=== PATIENT | female | born 1995 | race Caucasian/White ===

== ENCOUNTER → 2018-12-10 | Outpatient (REF) | payer OTHER ==
[2018-12-10 14:41] LABS: BASO # 0.1 10^3/uL (0.0-0.2); BASO % 0.8 % (0.0-1.0); EOS # 0.1 10^3/uL (0.0-0.50); EOS % 2.2 % (0.0-3.0); HEMATOCRIT 39.8 % (36.0-47.0); LYMPH # 2.4 10^3/uL (1.5-6.5); LYMPH % 37.8 % (24.0-44.0); MEAN CORPUSCULAR HEMOGLOBIN 27.9 pg (27.0-33.0); MEAN CORPUSCULAR HGB CONC 32.7 g/dl (32.0-36.5); MEAN CORPUSCULAR VOLUME 85.4 fl (80.0-96.0); MONO # 0.6 10^3/uL (0.0-0.8); MONO % 9.2 % (0.0-5.0); NEUTROPHILS # 3.2 10^3/uL (1.8-7.7); NEUTROPHILS % 49.7 % (36.0-66.0); PLATELET COUNT, AUTOMATED 271 10^3/uL (150-450); RED BLOOD COUNT 4.66 10^6/uL (4.00-5.40); WHITE BLOOD COUNT 6.4 10^3/uL (4.0-10.0)
[2018-12-10 14:52] LABS: ALT/SGPT 17 U/L (12-78); BILIRUBIN,TOTAL 0.8 MG/DL (0.2-1.0); BLOOD UREA NITROGEN 9 MG/DL (7-18); CALCIUM LEVEL 8.8 MG/DL (8.5-10.1); CARBON DIOXIDE LEVEL 27 MEQ/L (21-32); CHLORIDE LEVEL 105 MEQ/L (98-107); CHOLESTEROL LEVEL 188 MG/DL (<200); CHOLESTEROL RISK RATIO 3.686 (<5); FREE T4 0.94 NG/DL (0.76-1.46); GLOMERULAR FILTRATION RATE > 60.0 (>60); GLUCOSE, FASTING 85 MG/DL (70-100); HDL CHOLESTEROL 51 MG/DL (>40); LDL CHOLESTEROL 109 MG/DL (<100); NON-HDL-C 137 MG/DL; POTASSIUM SERUM 3.8 MEQ/L (3.5-5.1); SODIUM LEVEL 139 MEQ/L (136-145); TOTAL PROTEIN 7.1 GM/DL (6.4-8.2); TRIGLYCERIDES LEVEL 139 MG/DL (<150)
[2018-12-10 15:04] LABS: HEMOGLOBIN A1c 5.6 %
== END ==
LOC: M LABSMT 13:24
PROVIDERS: ATTEND Physician Assistant
DX: Z13.29 Encounter for screening for other suspected endocrine disorder (principal); K21.0 Gastro-esophageal reflux disease with esophagitis

== ENCOUNTER → 2019-04-01 | Outpatient (REF) | payer OTHER ==
[2019-04-01 18:23] LABS: HEMATOCRIT 37.4 % (36.0-47.0); HEMOGLOBIN 12.6 g/dl (12.0-15.5); MEAN CORPUSCULAR HEMOGLOBIN 28.8 pg (27.0-33.0); MEAN CORPUSCULAR HGB CONC 33.7 g/dl (32.0-36.5); MEAN CORPUSCULAR VOLUME 85.6 fl (80.0-96.0); PLATELET COUNT, AUTOMATED 291 10^3/uL (150-450); RED BLOOD COUNT 4.37 10^6/uL (4.00-5.40); WHITE BLOOD COUNT 8.1 10^3/uL (4.0-10.0)
[2019-04-02 07:49] LABS: HCG, SERUM QUANTITATIVE 60008 MIU/ML
[2019-04-02 11:03] LABS: RUBELLA IgG QUALITATIVE IMMUNE (IMMUNE)
[2019-04-02 11:32] LABS: HIV 1&2 SCREEN CENTAUR NEGATIVE (NEGATIVE)
== END ==
LOC: M LAB REF 16:52
PROVIDERS: ATTEND Obstetrics & Gynecology
DX: O36.80X0 Pregnancy with inconclusive fetal viability, not applicable or unspecified (principal); Z32.01 Encounter for pregnancy test, result positive

== ENCOUNTER → 2019-06-25 | Outpatient (CLI) | payer OTHER ==
[~2019-06-25] MED LIST: PRENTAB9 PO
--- NOTE | 2019-06-25 08:29 | REP ---
Clinical: Anatomical evaluation. Comparison: None . Findings: Examination demonstrates a single live intrauterine in cephalic presentation. motion is identified by technologist. Placenta is noted posterior and grade zero without evidence for placenta previa or abruption. Amniotic fluid volume is normal. Cervix measures 4.7 cm in length and appears closed. No evidence for nuchal cord. Gestational age by LMP 19 weeks 1 day with LATESHA 11/18/2019 . Gestational age by current measurements 20 weeks 0 days with LATESHA 11/12/2019 . FHR equals 150 beats per minute. BPD 4.6 cm 19 weeks 5 days HC 17.1 cm 19 weeks 5 days AC 15.5 cm 20 weeks 5 days FL 3.2 cm 19 weeks 6 days HL 3.1 cm 20 weeks 0 days HC/AC ratio 1.10 Estimated weight 343 grams ( 93rd percentile). Anatomical assessment demonstrates normal structures including cranium, choroid plexus, cavum, cerebellum/posterior fossa, facial features, lungs, diaphragm, stomach, cord insertion/three-vessel cord, kidneys/bladder, spine, and extremities. Impression: Single live intrauterine in cephalic presentation demonstrating appropriate interval growth. Limited evaluation of the heart/ventricular outflow tracts noted. Remainder of the anatomical assessment is complete and normal. Electronically Signed by Ramon Lomeli MD 06/25/2019 08:21 A
== END ==
LOC: M RAD 07:17
PROVIDERS: ATTEND Advanced Practice Midwife
DX: Z34.02 Encounter for supervision of normal first pregnancy, second trimester (principal); Z36.89 Encounter for other specified antenatal screening; Z3A.19 19 weeks gestation of pregnancy

== ENCOUNTER → 2019-07-22 | Outpatient (CLI) | payer OTHER ==
--- NOTE | 2019-07-22 15:08 | REP ---
OB ULTRASOUND: Real-time sonographic evaluation of the gravid uterus is performed. There is a single living intrauterine gestation, estimated gestational age 23 weeks 0 days, EDC 11/18/2019. Today's measurements show appropriate growth. BPD 57 mm = 23 weeks 3 days, 62nd percentile HC 221 mm = 24 weeks 1 day, 74th percentile AC 200 mm = 24 weeks 4 days, 84th percentile FL 45 mm = 24 weeks 5 days, 88th percentile HC/AC ratio 1.11, within normal range. Estimated weight 712 grams, greater than 97th percentile. Cervix is closed and measures 3.9 cm in length. heart rate 136 beats per minute. SEEN/GROSSLY UNREMARKABLE Lateral ventricles yes Posterior fossa yes Upper lip no Four-chamber heart yes LVOT yes RVOT yes Stomach yes Cord insertion yes Three vessel cord yes Kidneys yes Bladder yes Spine no position: Transverse with head toward the maternal left side. Placenta: Posterior, fundal and grade 0 with no previa or abruption. Amniotic fluid: Within normal limits. Electronically Signed by Marcin Galeana MD 07/23/2019 04:18 P
== END ==
LOC: M RAD 10:31
PROVIDERS: ATTEND Advanced Practice Midwife
DX: Z34.82 Encounter for supervision of other normal pregnancy, second trimester (principal); Z3A.23 23 weeks gestation of pregnancy

== ENCOUNTER → 2019-08-18 | Outpatient (CLI) | payer OTHER ==
[2019-08-18 13:32] LABS: HEMATOCRIT 35.6 % (36.0-47.0); HEMOGLOBIN 11.8 g/dl (12.0-15.5); MEAN CORPUSCULAR HEMOGLOBIN 28.8 pg (27.0-33.0); MEAN CORPUSCULAR HGB CONC 33.1 g/dl (32.0-36.5); MEAN CORPUSCULAR VOLUME 86.8 fl (80.0-96.0); PLATELET COUNT, AUTOMATED 273 10^3/uL (150-450); WHITE BLOOD COUNT 9.3 10^3/uL (4.0-10.0)
== END ==
LOC: M LAB 11:49
PROVIDERS: ATTEND Advanced Practice Midwife
DX: Z34.02 Encounter for supervision of normal first pregnancy, second trimester (principal); Z3A.00 Weeks of gestation of pregnancy not specified

== ENCOUNTER → 2019-10-06 | Outpatient (CLI) | payer OTHER ==
--- NOTE | 2019-10-06 11:27 | REP ---
Obstetric sonography: History: Supervision of , 35 weeks. Size greater than dates. Findings: Scanning through the gravid uterus demonstrates a viable single intrauterine gestation in a cephalic lie. motion is observed and heart rate is recorded at 135 beats per minute. A posterior grade 1 placenta is seen without evidence of previa. Amniotic fluid is subjectively normal. Closed cervical length is measured transabdominally at 3.4 cm. No extrauterine abnormality is observed. There has been appropriate interval growth. Umbilical cord is seen draping across the neck. No anomaly is seen. The following anatomic structures are again identified and felt to be unremarkable: cranium, face and profile, four-chamber heart, diaphragm, left-sided stomach, abdominal wall cord insertion, three-vessel cord, kidneys and bladder, spine. Biometry chart: BPD 9.1 cm = 37 weeks 0 days Head circumference 31.6 cm = 35 weeks 4 days Abdominal circumference 33.2 cm = 37 weeks 1 day Femur length 6.4 cm = 33 weeks 2 days Humeral length 5.7 cm = 32 weeks 6 days HC/AC ratio normal 0.95. Cephalic index normal 0.83. Estimated weight 2816 grams, 6 pounds 3 ounces, 87 percentile for 33 weeks 6 days. THERON normal 16.2%. S/D ratio in the umbilical cord artery by Doppler normal 2.20. Impression: Viable single intrauterine gestation at 35 weeks 1 day by today's composite sonographic criteria. Expected gestational age estimate based on prior sonography is 34 weeks 5 days. LATESHA based on prior sonography is November 12, 2019. There has been appropriate interval growth. Electronically Signed by Roque Lloyd MD 10/06/2019 11:40 A
== END ==
LOC: M RAD 08:57
PROVIDERS: ATTEND Advanced Practice Midwife
DX: O26.849 Uterine size-date discrepancy, unspecified trimester (principal); Z3A.35 35 weeks gestation of pregnancy

== ENCOUNTER → 2019-10-20 | Outpatient (REF) | payer OTHER | LOC: M SFHCWAGY 17:17 | PROVIDERS: ATTEND Obstetrics & Gynecology | DX: Z36.85 Encounter for antenatal screening for Streptococcus B (principal); O99.213 Obesity complicating pregnancy, third trimester ==

== ENCOUNTER → 2019-11-04 | Outpatient (CLI) | payer OTHER ==
--- NOTE | 2019-11-04 19:07 | REP ---
A obstetric sonography: History: Size greater than dates, estimated weight study. Comparison exam October 06, 2019. Findings: Scanning through the gravid uterus demonstrates a viable single intrauterine gestation in a cephalic lie. Posterior placenta is seen without evidence of previa. Closed cervical length could not be measured due to low head position. There has been appropriate interval growth. Umbilical cord is seen draping across the back of the neck. The following anatomic structures are again identified and felt to be unremarkable today: cranium, choroid plexus, cavum, lungs, diaphragm, left-sided stomach, abdominal wall cord insertion, three-vessel cord, kidneys and bladder. Biometry chart: BPD 9.8 cm 40 weeks 1 day head circumference 34.4 cm 39 weeks 5 days abdominal circumference 38.4 cm, off scale femur length 7.0 cm 35 weeks 6 days humeral length 6.6 cm 38 weeks 3 days HC/AC ratio 0.89 (0.90 1.09), cephalic index normal 0.81, estimated weight 4141 grams/9 pounds 2 ounces/greater 97 percentile for 38 weeks 0 days. Amniotic fluid index 24.5 cm (7.3-23.9 cm) SD ratio in the umbilical cord artery by Doppler normal 2.07. Impression: Viable single intrauterine gestation at 38 weeks 3 days by today's composite criteria. Expected gestational age estimate based on prior sonography is 38 weeks 6 days. LATESHA by prior sonography November 12, 2019. Greater 97th percentile for weight. Electronically Signed by Roque Lloyd MD 11/05/2019 08:10 A
== END ==
LOC: M RAD 14:25
PROVIDERS: ATTEND Internal Medicine Medical Oncology
DX: O26.849 Uterine size-date discrepancy, unspecified trimester (principal); Z3A.38 38 weeks gestation of pregnancy

== ENCOUNTER 2019-11-11 08:41 | Inpatient (IN) | payer OTHER ==
[~2019-11-11] VITALS: Ht 160 cm; Wt 115.8 kg
[2019-11-11] VITALS (26 sets, daily range): BP systolic 110–159; BP diastolic 56–95
[2019-11-11] MEDS ORDERED: PRENTAB9 PO (09:34)
[2019-11-11] MEDS: miSOPROStol 50 MCG 1/2 TAB (S0191) SL SCH ×2 (10:27→14:57)
[2019-11-11 10:58] LABS: HEMATOCRIT 35.8 % (36.0-47.0); HEMOGLOBIN 11.3 g/dl (12.0-15.5); MEAN CORPUSCULAR HGB CONC 31.6 g/dl (32.0-36.5); MEAN CORPUSCULAR VOLUME 85.6 fl (80.0-96.0); PLATELET COUNT, AUTOMATED 245 10^3/uL (150-450); RED BLOOD COUNT 4.18 10^6/uL (4.00-5.40); WHITE BLOOD COUNT 8.3 10^3/uL (4.0-10.0)
--- NOTE | 2019-11-11 11:31 | HPE ---
DATE OF ADMISSION: 11/11/2019 She is a 23-year-old, (G) 1, para (P) 0 female, at 39-0/7 weeks gestation by 8 week ultrasound, estimated date of confinement (EDC) of 11/18/2019 presents for labor induction. The patient's course is significant for large for gestational age with an ultrasound of 4121 grams, which is greater than 97 percentile 1 week prior to admission. The patient has occasional contractions. She denies vaginal bleeding. There is good movement. COURSE: care has been through [facility] since early . The patient has large for gestational age as described above. No other complications. MEDICAL HISTORY: Depression/anxiety. SURGICAL HISTORY: [place] teeth removal. ALLERGIES: NONE. SOCIAL HISTORY: The patient smoked cigarettes prior to but denies use during . She admits to occasional marijuana use. Father of the baby is involved. FAMILY HISTORY: The patient's mother admits to having a large baby. Her first baby was 12 pounds, second baby was almost 10 pounds. PHYSICAL EXAM: Blood pressure 134/74. Pulse 84. She is in no apparent distress. Head and neck exam normal. Lungs: Clear. Heart: Regular rate and rhythm. Abdomen: Nontender, gravid. heart tones category 1. Contractions irregular. Sterile vaginal exam: 3 cm, 70% and -2, posterior, soft, vertex. Extremities: Nontender. LABS: Blood type AB positive, rubella immune. RPR nonreactive. Hepatitis B and C negative. Diabetes screen negative. GBS negative. ASSESSMENT: 23-year-old, 1, at 39-0/7 weeks gestation who presents for labor induction. Risks of induction were discussed. The patient is admitted on 11/11/2019. [facility]
[2019-11-11] MEDS ORDERED: LR 1,000 ML IV SCH (18:55)
[2019-11-11] MEDS ORDERED: OXYTOCIN DRIP 30 UNITS in IV 1 EA IV SCH (19:00)
[2019-11-11] MEDS ORDERED: FENTANYL 2MCG/ML ROPIVACAINE 0.2% IN 0.9% NACL 100ML IVBAG As Ordered ONE (20:42)
[2019-11-11] MEDS ORDERED: ONDANSETRON 4MG/2ML VIAL (J2405) IV PRN (21:30)
[2019-11-11] MEDS ORDERED: LACTATED RINGER'S 1000 ML IV PRN (21:30)
[2019-11-11] MEDS ORDERED: EPIDURAL COMMENT XX SCH (21:30)
[2019-11-11] MEDS ORDERED: diphenhydrAMINE INJ 50MG/ML VIAL (J1200) IV PRN (21:30)
[2019-11-11] MEDS ORDERED: NALOXONE INJ 0.4 MG/1 ML VIAL (J2310) IV PRN (21:30)
[2019-11-11] MEDS ORDERED: EPIDURAL/PCA KEYS XX PRN (21:30)
[2019-11-11] MEDS ORDERED: FENTANYL/ROPIVACAINE/NACL BAG 100 ML EPIDURAL SCH (21:30)
[2019-11-11] MEDS ORDERED: REFRIGERATOR IV KEYS XX PRN (21:30)
[2019-11-11] MEDS ORDERED: ePHEDrine SULFATE 25 MG/5 ML(5MG/ML) SYRINGE IV PRN (21:30)
[2019-11-12 00:12] VITALS: BP 134/64
[2019-11-12 00:41] VITALS: BP 133/66
[2019-11-12 02:10] VITALS: BP 140/90
[2019-11-12] MEDS ORDERED: OXYTOCIN DRIP 30 UNITS in IV 1 EA IV ONE (02:30)
[2019-11-12] MEDS ORDERED: RHOGAM 300 MCG (1500 IU) INJ (J2790) IM SCH (02:30)
[2019-11-12] MEDS ORDERED: ONDANSETRON 4MG/2ML VIAL (J2405) IV PRN (02:30)
[2019-11-12] MEDS ORDERED: IBUPROFEN 600 MG TAB PO PRN (02:30)
[2019-11-12] MEDS ORDERED: MEASLES,MUMPS,RUBELLA VACCINE INJ (MMR-II) (90707) SC SCH (02:30)
[2019-11-12] MEDS ORDERED: DIBUCAINE 1% OINTMENT 30GM TOP PRN (02:30)
[2019-11-12] MEDS ORDERED: DOCUSATE SODIUM 100 MG CAP PO PRN (02:30)
[2019-11-12] MEDS ORDERED: ACETAMINOPHEN TAB 650MG DOSE (2X325MG) PO PRN (02:30)
[2019-11-12] MEDS ORDERED: IBUPROFEN 800 MG TAB PO PRN (02:30)
[2019-11-12] MEDS ORDERED: LIDOCAINE 1% MDV 20ML VIAL INFIL ONE (02:30)
[2019-11-12] MEDS ORDERED: METHYLERGONOVINE MALEATE 0.2 MG TAB PO PRN (02:30)
[2019-11-12 02:40] VITALS: BP 132/75
[2019-11-12] MEDS: ACETAMINOPHEN 500 MG TAB PO PRN ×2 (06:01→21:54)
[2019-11-12 06:19] VITALS: BP 129/70
[2019-11-12] MEDS: PRENATAL VITAMINS CHEWABLE TABLET PO SCH (08:29)
--- NOTE | 2019-11-12 13:15 | DN ---
DATE OF DELIVERY: 11/12/2019 PREDELIVERY DIAGNOSIS: 39-0/7 weeks gestation labor induction. POSTDELIVERY DIAGNOSIS: Delivered. PROCEDURE: Spontaneous vaginal delivery. DIRECT MARKETING REPRESENTATIVE: Dr. Dieter Lemus ANESTHESIA: Epidural. ESTIMATED BLOOD LOSS: 300 mL. FINDINGS: 9 pound 0 ounce male infant, scores 8 and 9. DELIVERY SUMMARY: After approximately 2-1/2 hours second stage of labor the patient had spontaneous delivery of a 9 pound 0 ounce male , scores 8 and 9, under epidural anesthesia. There was no nuchal cord. The shoulders delivered with ease. The infant cried immediately and was handed to the mother. The cord was doubly clamped and cut. The placenta delivered spontaneously and appeared to be intact. The patient received IV Pitocin immediately after delivery of the placenta. A second degree perineal laceration was repaired under local anesthesia with #2-0 chromic in the usual fashion. Rectal exam was normal and confirmatory. Sponge and needle counts were correct.
[2019-11-12 17:47] VITALS: BP 116/67
[2019-11-13 05:49] VITALS: BP 98/50
[2019-11-13] MEDS: PRENATAL VITAMINS CHEWABLE TABLET PO SCH (09:00)
--- NOTE | 2019-11-14 13:27 | DSES ---
DATE OF ADMISSION: 11/11/2019 DATE OF DISCHARGE: 11/13/2019 DISCHARGE DIAGNOSES: Spontaneous vaginal delivery at term, day #1, stable condition. HISTORY OF PRESENT ILLNESS: Jeni Mooney is a 23-year-old 1, para 1-0-0-1 now who underwent induction of labor due to suspected macrosomic fetus. She delivered a live male weighing 9 pounds 0 ounces, scores of 8 and 9. Estimated blood loss 300 mL. She did have a second-degree laceration that was repaired in the usual fashion. Her course has been uncomplicated. She has been out of bed for self care, adin care and infant care. She is breast-feeding successfully. Her pain has been well managed by oral ibuprofen. She is voiding without difficulty and passing flatus. She is requesting discharge to home today. She reports that the retail support manager said that they would discharge the baby at approximately 1500 hours. OBJECTIVE Vital signs: Stable. Breasts are soft, nontender. Abdomen is fundus firm one fingerbreadth below umbilicus. Lochia rubra moderate. There is no edema and no hematoma noted. PLAN: Discharge the patient to home. She is to follow up at [facility] for 6-week visit. I did review discharge instructions that include breast care, adin care, pelvic rest, activity and lifting restrictions, danger signs to report and access to care. The patient and her have had their questions answered and request discharge home today.
== END 2019-11-13 13:30 | disposition home or self-care (01) | DRG 560 ==
LOC: M LDI 08:41 → M OBS 11-12 04:21
PROVIDERS: ADMIT Specialist; ATTEND Specialist
PROC: 3E0P7GC Introduction of Other Therapeutic Substance into Female Reproductive, Via Natural or Artificial Opening (ICD-10-PCS; 2019-11-11)
PROC: 10E0XZZ Delivery of Products of Conception, External Approach (ICD-10-PCS; principal; 2019-11-12)
PROC: 0KQM0ZZ Repair Perineum Muscle, Open Approach (ICD-10-PCS; 2019-11-12)
DX: O36.63X0 Maternal care for excessive fetal growth, third trimester, not applicable or unspecified (principal); O70.1 Second degree perineal laceration during delivery; Z3A.39 39 weeks gestation of pregnancy; Z37.0 Single live birth

== ENCOUNTER → 2020-03-01 | Outpatient (CLI) | payer OTHER ==
[2020-03-01 16:43] LABS: BASO % 0.7 % (0.0-1.0); EOS # 0.1 10^3/uL (0.0-0.5); HEMATOCRIT 37.9 % (36.0-47.0); HEMOGLOBIN 12.3 g/dl (12.0-15.5); LYMPH % 32.5 % (24.0-44.0); MEAN CORPUSCULAR HGB CONC 32.5 g/dl (32.0-36.5); MEAN CORPUSCULAR VOLUME 83.3 fl (80.0-96.0); MONO # 0.6 10^3/uL (0.0-0.8); MONO % 10.5 % (0.0-5.0); NEUTROPHILS # 3.3 10^3/uL (1.5-8.5); NEUTROPHILS % 54.1 % (36.0-66.0); PLATELET COUNT, AUTOMATED 308 10^3/uL (150-450); RED BLOOD COUNT 4.55 10^6/uL (4.00-5.40); WHITE BLOOD COUNT 6.1 10^3/uL (4.0-10.0)
[2020-03-01 16:57] LABS: ALBUMIN 3.9 GM/DL (3.2-5.2); ALT/SGPT 27 U/L (12-78); BILIRUBIN,TOTAL 0.6 MG/DL (0.2-1.0); BLOOD UREA NITROGEN 9 MG/DL (7-18); CALCIUM LEVEL 9.2 MG/DL (8.5-10.1); CARBON DIOXIDE LEVEL 28 MEQ/L (21-32); CHLORIDE LEVEL 108 MEQ/L (98-107); CREATININE FOR GFR 0.59 MG/DL (0.55-1.30); FREE T4 1.11 NG/DL (0.76-1.46); GLOMERULAR FILTRATION RATE > 60.0 (>60); GLUCOSE, FASTING 85 MG/DL (70-100); POTASSIUM SERUM 4.2 MEQ/L (3.5-5.1); SODIUM LEVEL 140 MEQ/L (136-145); THYROID STIMULATING HORMONE 0.989 uIU/ML (0.358-3.740); TOTAL PROTEIN 7.1 GM/DL (6.4-8.2)
[2020-03-01 16:59] LABS: TOTAL 25(OH) VITAMIN D 27.2 NG/ML (30.0-100.0)
[2020-03-01 17:38] LABS: HEMOGLOBIN A1c 5.2 %
== END ==
LOC: M WUC 11:44
PROVIDERS: ATTEND Physician Assistant
DX: Z13.29 Encounter for screening for other suspected endocrine disorder (principal)

== ENCOUNTER → 2020-03-03 | Outpatient (REF) | payer OTHER ==
[2020-03-03 18:42] LABS: HCG, SERUM QUALITATIVE NEGATIVE (NEGATIVE)
[2020-03-03 20:08] LABS: CHLAMYDIA DNA AMPLIFICATION NEGATIVE (NEGATIVE); GC DNA AMPLIFICATION NEGATIVE (NEGATIVE)
== END ==
LOC: M PLALAB 14:38
PROVIDERS: ATTEND Advanced Practice Midwife
DX: N91.2 Amenorrhea, unspecified (principal); N89.8 Other specified noninflammatory disorders of vagina

== ENCOUNTER → 2020-08-17 | Outpatient (REF) | payer OTHER ==
[2020-08-18 10:54] LABS: AMORPHOUS SEDIMENT MODERATE (NEGATIVE); APPEARANCE, URINE TURBID (CLEAR); BACTERIA, URINE AUTO NEGATIVE (NEGATIVE); BILIRUBIN, URINE AUTO NEGATIVE (NEGATIVE); BLOOD, URINE BLOOD NEGATIVE (NEGATIVE); COLOR, URINE YELLOW (YELLOW); GLUCOSE, URINE (UA) AUTO NEGATIVE (NEGATIVE); KETONE, URINE AUTO NEGATIVE (NEGATIVE); LEUKOCYTE ESTERASE, URINE AUTO NEGATIVE (NEGATIVE); MUCUS, URINE SMALL (NEGATIVE); NITRITE, URINE AUTO NEGATIVE (NEGATIVE); PROTEIN, URINE AUTO NEGATIVE (NEGATIVE); RBC, URINE AUTO 1 /HPF (0-3); SQUAMOUS EPITHELIAL CELL UR AU 1 /HPF (0-6); UROBILINOGEN, URINE AUTO 0.2 mg/dL (0.0-2.0); WBC, URINE AUTO 2 /HPF (0-3)
== END ==
LOC: M SFHCWAGY 10:13
PROVIDERS: ATTEND Specialist
DX: R39.15 Urgency of urination (principal); Z20.2 Contact with and (suspected) exposure to infections with a predominantly sexual mode of transmission; Z01.419 Encounter for gynecological examination (general) (routine) without abnormal findings

== ENCOUNTER → 2021-09-22 | Outpatient (CLI) | payer OTHER ==
[2021-09-22 11:23] LABS: BASO % 0.2 % (0.0-1.0); EOS # 0.2 10^3/uL (0.0-0.5); EOS % 2.9 % (0.0-3.0); HEMATOCRIT 36.9 % (36.0-47.0); LYMPH % 36.6 % (24.0-44.0); MEAN CORPUSCULAR HEMOGLOBIN 27.4 pg (27.0-33.0); MEAN CORPUSCULAR HGB CONC 32.5 g/dl (32.0-36.5); MEAN CORPUSCULAR VOLUME 84.2 fl (80.0-96.0); MONO # 0.6 10^3/uL (0.0-0.8); MONO % 11.2 % (2.0-8.0); NEUTROPHILS # 2.7 10^3/uL (1.5-8.5); NEUTROPHILS % 48.7 % (36.0-66.0); PLATELET COUNT, AUTOMATED 295 10^3/uL (150-450); RED BLOOD COUNT 4.38 10^6/uL (4.00-5.40); WHITE BLOOD COUNT 5.5 10^3/uL (4.0-10.0)
[2021-09-22 12:02] LABS: HEMOGLOBIN A1c 5.5 %
[2021-09-22 12:04] LABS: ALBUMIN 3.6 GM/DL (3.2-5.2); ALT/SGPT 24 U/L (12-78); BILIRUBIN,DIRECT 0.1 MG/DL (0.0-0.2); BILIRUBIN,TOTAL 0.4 MG/DL (0.2-1.0); BLOOD UREA NITROGEN 10 MG/DL (7-18); CARBON DIOXIDE LEVEL 26 MEQ/L (21-32); CHLORIDE LEVEL 109 MEQ/L (98-107); CREATININE FOR GFR 0.58 MG/DL (0.55-1.30); GLOMERULAR FILTRATION RATE > 60.0 (>60); GLUCOSE, FASTING 93 MG/DL (70-100); LIPASE 120 U/L (73-393); POTASSIUM SERUM 3.5 MEQ/L (3.5-5.1); SODIUM LEVEL 142 MEQ/L (136-145)
[2021-09-22 12:10] LABS: HCG, SERUM QUALITATIVE NEGATIVE (NEGATIVE)
== END ==
LOC: M LAB 10:34
PROVIDERS: ATTEND Physician Assistant
DX: R19.7 Diarrhea, unspecified (principal)

== ENCOUNTER 2021-10-14 14:05 | Emergency (ER) | payer OTHER ==
[~2021-10-14] VITALS: Ht 157.5 cm; Wt 106.2 kg
[2021-10-14 14:06] VITALS: BP 149/91
[2021-10-14] MEDS ORDERED: NS 1,000 ML IV ONE (14:35)
[2021-10-14] MEDS ORDERED: ONDANSETRON 4MG/2ML VIAL IV ONE (14:35)
[2021-10-14] MEDS ORDERED: MORPHINE 4 MG/ML 1ML VIAL/SYRINGE (J2270) IV ONE (14:35)
[2021-10-14] MEDS ORDERED: BACITRACIN OINTMENT 30GM TUBE TOP STA (14:41)
[2021-10-14 14:49] LABS: BASO # 0.1 10^3/uL (0.0-0.2); BASO % 0.5 % (0.0-1.0); EOS # 0.2 10^3/uL (0.0-0.5); EOS % 1.8 % (0.0-3.0); HEMOGLOBIN 12.3 g/dl (12.0-15.5); LYMPH # 2.1 10^3/uL (1.5-5.0); LYMPH % 21.7 % (24.0-44.0); MEAN CORPUSCULAR HEMOGLOBIN 27.2 pg (27.0-33.0); MEAN CORPUSCULAR HGB CONC 32.4 g/dl (32.0-36.5); MEAN CORPUSCULAR VOLUME 84.1 fl (80.0-96.0); MONO # 0.8 10^3/uL (0.0-0.8); MONO % 8.5 % (2.0-8.0); NEUTROPHILS # 6.5 10^3/uL (1.5-8.5); NEUTROPHILS % 67.2 % (36.0-66.0); PLATELET COUNT, AUTOMATED 296 10^3/uL (150-450); RED BLOOD COUNT 4.52 10^6/uL (4.00-5.40); WHITE BLOOD COUNT 9.7 10^3/uL (4.0-10.0)
[2021-10-14 15:19] LABS: BLOOD UREA NITROGEN 15 MG/DL (7-18); CALCIUM LEVEL 8.8 MG/DL (8.5-10.1); CARBON DIOXIDE LEVEL 29 MEQ/L (21-32); CHLORIDE LEVEL 106 MEQ/L (98-107); CREATININE FOR GFR 0.74 MG/DL (0.55-1.30); GLOMERULAR FILTRATION RATE > 60.0 (>60); GLUCOSE, FASTING 93 MG/DL (70-100); POTASSIUM SERUM 3.9 MEQ/L (3.5-5.1); SODIUM LEVEL 140 MEQ/L (136-145)
[2021-10-14] MEDS ORDERED: BACITRACIN OINTMENT 30GM TUBE TOP ONE (16:20)
== END 2021-10-14 17:19 | disposition home or self-care (01) ==
LOC: M ED 14:05
DX: T23.001A Burn of unspecified degree of right hand, unspecified site, initial encounter (principal); X15.8XXA Contact with other hot household appliances, initial encounter; Y92.018 Other place in single-family (private) house as the place of occurrence of the external cause; F17.210 Nicotine dependence, cigarettes, uncomplicated; F12.20 Cannabis dependence, uncomplicated
CPT/HCPCS: 36415; 80048; 84702; 85025; 96374; 96375; 99284; J2270; J2405

== ENCOUNTER → 2022-08-18 | Outpatient (CLI) | payer OTHER | LOC: M WUC 09:52 | PROVIDERS: ATTEND Physician Assistant | DX: M54.2 Cervicalgia (principal) ==

== ENCOUNTER → 2022-09-12 | Outpatient (REF) | payer OTHER | LOC: M LAB REF 17:19 | PROVIDERS: ATTEND Physician Assistant | DX: N39.0 Urinary tract infection, site not specified (principal) ==

== ENCOUNTER → 2024-06-10 | Outpatient (CLI) | payer OTHER ==
[2024-06-10 18:29] LABS: HEMATOCRIT 36.5 % (36.0-47.0); MEAN CORPUSCULAR HEMOGLOBIN 27.8 pg (27.0-33.0); MEAN CORPUSCULAR HGB CONC 32.9 g/dl (32.0-36.5); MEAN CORPUSCULAR VOLUME 84.7 fl (80.0-96.0); PLATELET COUNT, AUTOMATED 297 10^3/uL (150-450); RED BLOOD COUNT 4.31 10^6/uL (4.00-5.40); WHITE BLOOD COUNT 8.3 10^3/uL (4.0-10.0)
[2024-06-10 19:33] LABS: HEPATITIS C VIRUS ABY INDEX 0.09 INDEX (<0.8)
[2024-06-10 19:40] LABS: GC DNA AMPLIFICATION NEGATIVE (NEGATIVE)
== END ==
LOC: M PLALAB 14:53
PROVIDERS: ATTEND Specialist
DX: Z34.91 Encounter for supervision of normal pregnancy, unspecified, first trimester (principal)

== ENCOUNTER → 2024-07-09 | Outpatient (CLI) | payer OTHER ==
[2024-07-09 10:40] LABS: BASO % 0.3 % (0.0-1.0); EOS # 0.2 10^3/uL (0.0-0.5); EOS % 3.1 % (0.0-3.0); HEMATOCRIT 33.3 % (36.0-47.0); HEMOGLOBIN 11.1 g/dl (12.0-15.5); LYMPH # 1.7 10^3/uL (1.5-5.0); LYMPH % 22.9 % (24.0-44.0); MEAN CORPUSCULAR HEMOGLOBIN 28.3 pg (27.0-33.0); MEAN CORPUSCULAR HGB CONC 33.3 g/dl (32.0-36.5); MEAN CORPUSCULAR VOLUME 84.9 fl (80.0-96.0); MONO # 0.5 10^3/uL (0.0-0.8); MONO % 7.4 % (2.0-8.0); NEUTROPHILS # 4.9 10^3/uL (1.5-8.5); NEUTROPHILS % 66.2 % (36.0-66.0); PLATELET COUNT, AUTOMATED 316 10^3/uL (150-450); RED BLOOD COUNT 3.92 10^6/uL (4.00-5.40); WHITE BLOOD COUNT 7.3 10^3/uL (4.0-10.0)
[2024-07-09 10:44] LABS: ERYTHROCYTE SEDIMENTATION RATE 60 mm/hr (0-20)
[2024-07-09 10:46] LABS: RHEUMATOID FACTOR QUANT 7.7 IU/ML (<14)
[2024-07-09 10:50] LABS: ALBUMIN 3.1 G/DL (3.2-5.2); ALKALINE PHOSPHATASE 67 U/L (46-116); ALT/SGPT 11 U/L (7.0-40); AST/SGOT < 8 U/L (<34); BILIRUBIN,TOTAL 0.7 MG/DL (0.3-1.2); BLOOD UREA NITROGEN < 5 MG/DL (9-23); CALCIUM LEVEL 8.7 MG/DL (8.5-10.1); CARBON DIOXIDE LEVEL 24 MMOL/L (20-31); CHLORIDE LEVEL 107 MMOL/L (98-107); CREATININE FOR GFR 0.46 MG/DL (0.55-1.30); FERRITIN 29.7 NG/ML (7.3-270.7); FREE T4 1.16 NG/DL (0.89-1.76); GLOMERULAR FILTRATION RATE > 60.0 (>60); GLUCOSE, FASTING 89 MG/DL (60-100); POTASSIUM SERUM 3.7 MMOL/L (3.5-5.1); SODIUM LEVEL 138 MMOL/L (136-145); THYROID PEROXIDASE ANTIBODY < 28.0 U/ML (<60.0); THYROID STIMULATING HORMONE 1.201 uIU/ML (0.55-4.78); TOTAL PROTEIN 6.7 G/DL (5.7-8.2)
[2024-07-10 13:37] LABS: ANA SCREEN, IFA NEGATIVE (NEGATIVE)
[2024-07-11 00:48] LABS: CYCLIC CITRULLINATED PEPTIDE < 16 UNITS (<20)
[2024-07-13 00:27] LABS: LYME TOTAL ANTIBODY CIA <= 0.90 Index (<=0.90)
== END ==
LOC: M PLALAB 08:27
PROVIDERS: ATTEND Family Medicine
DX: M25.50 Pain in unspecified joint (principal)

== ENCOUNTER → 2024-07-10 | Outpatient (CLI) | payer OTHER | LOC: M WHC 14:50 | PROVIDERS: ATTEND Family Medicine | DX: D48.19 Other specified neoplasm of uncertain behavior of connective and other soft tissue (principal); R22.31 Localized swelling, mass and lump, right upper limb ==

== ENCOUNTER → 2024-07-31 | Outpatient (CLI) | payer OTHER | LOC: M WHC 14:15 | PROVIDERS: ATTEND Specialist | DX: Z34.82 Encounter for supervision of other normal pregnancy, second trimester (principal); Z3A.22 22 weeks gestation of pregnancy ==

== ENCOUNTER → 2024-08-15 | Outpatient (CLI) | payer OTHER ==
[2024-08-15 13:17] LABS: HEMATOCRIT 33.4 % (36.0-47.0); HEMOGLOBIN 11.1 g/dl (12.0-15.5); MEAN CORPUSCULAR HEMOGLOBIN 28.5 pg (27.0-33.0); MEAN CORPUSCULAR HGB CONC 33.2 g/dl (32.0-36.5); MEAN CORPUSCULAR VOLUME 85.6 fl (80.0-96.0); PLATELET COUNT, AUTOMATED 301 10^3/uL (150-450); WHITE BLOOD COUNT 6.8 10^3/uL (4.0-10.0)
[2024-08-15 13:44] LABS: GLUCOSE CHALLENGE TEST 1 HOUR 119 MG/DL (LESS THAN 140)
[2024-08-15 14:19] LABS: HIV 1&2 SCREEN NEGATIVE (NEGATIVE)
[2024-08-15 14:27] LABS: HEPATITIS C VIRUS ABY INDEX 0.03 INDEX (<0.8)
[2024-08-15 16:08] LABS: GC DNA AMPLIFICATION NEGATIVE (NEGATIVE)
== END ==
LOC: M PLALAB 08:34
PROVIDERS: ATTEND Obstetrics & Gynecology
DX: Z34.82 Encounter for supervision of other normal pregnancy, second trimester (principal)

== ENCOUNTER → 2024-08-20 | Outpatient (CLI) | payer OTHER | LOC: M RAD 09:22 | PROVIDERS: ATTEND Specialist | DX: Z34.82 Encounter for supervision of other normal pregnancy, second trimester (principal); Z3A.25 25 weeks gestation of pregnancy ==

== ENCOUNTER → 2024-09-15 | Outpatient (REF) | payer OTHER ==
[2024-09-15 13:57] LABS: Trichomonas vaginalis (AMP) NOT DETECTED (NEGATIVE)
[2024-09-15 14:20] LABS: GC DNA AMPLIFICATION NEGATIVE (NEGATIVE)
== END ==
LOC: M SFHCWAGY 12:19
PROVIDERS: ATTEND Obstetrics & Gynecology
DX: Z34.92 Encounter for supervision of normal pregnancy, unspecified, second trimester (principal)

== ENCOUNTER → 2024-11-05 | Outpatient (REF) | payer OTHER | LOC: M SFHCWAGY 14:46 | PROVIDERS: ATTEND Specialist | DX: Z34.83 Encounter for supervision of other normal pregnancy, third trimester (principal) ==

== ENCOUNTER → 2024-11-13 | Outpatient (CLI) | payer OTHER | LOC: M RAD 12:23 | PROVIDERS: ATTEND Specialist | DX: Z34.83 Encounter for supervision of other normal pregnancy, third trimester (principal); Z3A.37 37 weeks gestation of pregnancy ==

== ENCOUNTER 2024-12-01 02:54 | Inpatient (IN) | payer OTHER ==
[~2024-12-01] VITALS: Ht 157.5 cm; Wt 119.7 kg
[2024-12-01] VITALS (11 sets, daily range): BP systolic 108–131; BP diastolic 63–73; TEMP 97.1; O2SAT 97–100
[2024-12-01] MEDS ORDERED: HOME MED LIST COMPLETE! XX SCH (03:15)
[2024-12-01] MEDS: LACTATED RINGER'S 1000 ML IV STA (05:19)
[2024-12-01] MEDS ORDERED: LR 1,000 ML IV SCH (05:20)
[2024-12-01] MEDS: ceFAZolin SOD 2 GM in IV 1 EA IV ONE (05:20)
[2024-12-01] MEDS: BICITRA 30ML SOLN UDC PO ONE (05:20)
[2024-12-01 06:05] LABS: HEMOGLOBIN 10.8 g/dl (12.0-15.5); MEAN CORPUSCULAR HEMOGLOBIN 25.5 pg (27.0-33.0); MEAN CORPUSCULAR HGB CONC 31.8 g/dl (32.0-36.5); MEAN CORPUSCULAR VOLUME 80.2 fl (80.0-96.0); PLATELET COUNT, AUTOMATED 354 10^3/uL (150-450); RED BLOOD COUNT 4.24 10^6/uL (4.00-5.40); WHITE BLOOD COUNT 9.9 10^3/uL (4.0-10.0)
[2024-12-01] MEDS ORDERED: ONDANSETRON 4MG 2ML VIAL As Ordered ONE (06:14)
[2024-12-01] MEDS ORDERED: MORPHINE PRES-FREE INJ 10 MG/10 ML VIAL As Ordered ONE (06:14)
[2024-12-01] MEDS ORDERED: PHENYLephrine 500MCG 5ML (100MCG/ML) SYRINGE As Ordered ONE (06:14)
[2024-12-01] MEDS ORDERED: ONDANSETRON 4MG 2ML VIAL IV PRN (06:25)
[2024-12-01] MEDS ORDERED: oxyCODONE 5MG TAB PO PRN (06:25)
[2024-12-01] MEDS ORDERED: METOCLOPRAMIDE INJ 10MG/2ML VIAL IV PRN (06:25)
[2024-12-01] MEDS ORDERED: NALOXONE INJ 0.4MG/1ML VIAL IV PRN ×2 (06:25)
[2024-12-01] MEDS ORDERED: **NOTE PATIENT COMMENT** MISC XX SCH (06:25)
[2024-12-01] MEDS ORDERED: HYDROMORPHONE HCL 0.5 MG/ 0.5 ML SYRINGE IV PRN (06:25)
[2024-12-01] MEDS ORDERED: MEPERIDINE 25 MG/ML 1ML VIAL IV PRN (06:25)
[2024-12-01] MEDS ORDERED: fentaNYL 100 MCG/2 ML INJECTION IV PRN (06:25)
[2024-12-01] MEDS ORDERED: diphenhydrAMINE 50MG/ML VIAL IV PRN (06:25)
[2024-12-01] MEDS ORDERED: OXYTOCIN INJ 10UNITS/ML 1ML VIAL As Ordered ONE (06:27)
[2024-12-01] MEDS ORDERED: KETAMINE HCL 200MG/20ML VIAL As Ordered ONE (06:52)
[2024-12-01 06:59] LABS: HEPATITIS C VIRUS ABY INDEX 0.13 INDEX (<0.8)
[2024-12-01] MEDS ORDERED: fentaNYL 100 MCG/2 ML INJECTION As Ordered ONE (07:00)
[2024-12-01] MEDS ORDERED: RHOGAM 300MCG (1500IU) INJ IM SCH (07:40)
[2024-12-01 07:48] LABS: CORD GAS ABE A -4.8; CORD GAS ABE V -1.4; CORD GAS HCO3 A 25.5 MMOL/L; CORD GAS HCO3 V 23.5 MMOL/L; CORD GAS O2 SAT A 53.2 %; CORD GAS O2 SAT V 59.7 %; CORD GAS PCO2 A 70.1 mmHg; CORD GAS PCO2 V 40.3 mmHg; CORD GAS PH A 7.178 UNITS; CORD GAS PH V 7.384 UNITS; CORD GAS PO2 A 25.8 mmHg; CORD GAS SBC A 19.5 MMOL/L; CORD GAS SBC V 22.3 MMOL/L; CORD GAS TCO2 A 27.6 MMOL/L; CORD GAS TCO2 V 24.8 MMOL/L
[2024-12-01] MEDS ORDERED: OXYTOCIN 30UNITS IN 0.9% NaCl 500ML IV BAG As Ordered ONE (07:55)
[2024-12-01] MEDS: OXYTOCIN DRIP 30 UNITS in IV 1 EA IV SCH (08:13)
[2024-12-01] MEDS: PRENATAL VITAMINS CHEWABLE TABLET PO SCH (09:00)
[2024-12-01] MEDS: DOCUSATE SODIUM 100MG CAPSULE PO SCH (09:00)
[2024-12-01] MEDS: KETOROLAC 30 MG/ML 1ML VIAL IV SCH (10:30)
[2024-12-01] MEDS: SLF 3 ML SYR IV SCH (14:25)
[2024-12-02 01:59] VITALS: BP 122/57; O2SAT 100
[2024-12-02 06:07] VITALS: BP 114/73; O2SAT 99
[2024-12-02 07:21] LABS: HEMATOCRIT 30.2 % (36.0-47.0); HEMOGLOBIN 9.3 g/dl (12.0-15.5); MEAN CORPUSCULAR HEMOGLOBIN 24.9 pg (27.0-33.0); MEAN CORPUSCULAR HGB CONC 30.8 g/dl (32.0-36.5); MEAN CORPUSCULAR VOLUME 80.7 fl (80.0-96.0); PLATELET COUNT, AUTOMATED 299 10^3/uL (150-450); RED BLOOD COUNT 3.74 10^6/uL (4.00-5.40); WHITE BLOOD COUNT 10.7 10^3/uL (4.0-10.0)
[2024-12-02 10:00] VITALS: BP 134/66; O2SAT 97
[2024-12-02] MEDS: IBUPROFEN 800 MG TAB PO SCH (12:48)
[2024-12-02] MEDS ORDERED: oxyCODONE 5MG TAB PO PRN (15:30)
[2024-12-02] MEDS ORDERED: MORPHINE 2 MG/ML 1ML VIAL IV PRN (15:30)
[2024-12-02] MEDS: SIMETHICONE 80MG CHEW TAB PO PRN (15:31)
[2024-12-02] MEDS: oxyCODONE 5MG TAB PO PRN (15:38)
[2024-12-02 17:41] VITALS: BP 107/72; O2SAT 98
[2024-12-03 02:00] VITALS: BP 114/57; O2SAT 97
[2024-12-03 06:00] VITALS: BP 138/78; O2SAT 98
[2024-12-03] MEDS: MEASLES,MUMPS,RUBELLA VACCINE INJ (MMR-II) SC.IMMUN ONE (09:00)
[2024-12-03] MEDS: ACETAMINOPHEN 500 MG TAB PO PRN (09:04)
== END 2024-12-03 15:25 | disposition home or self-care (01) | DRG 540 ==
LOC: M LDO 02:54 → M LDI 05:18 → M OBS 09:13
PROVIDERS: ADMIT Obstetrics & Gynecology; ATTEND Obstetrics & Gynecology
PROC: 10D00Z1 Extraction of Products of Conception, Low, Open Approach (ICD-10-PCS; principal; 2024-12-01 06:57)
DX: O32.8XX0 Maternal care for other malpresentation of fetus, not applicable or unspecified (principal); Z37.0 Single live birth; Z3A.39 39 weeks gestation of pregnancy